=== PATIENT | female | born 1955 | race Caucasian/White ===

== ENCOUNTER 2016-07-21 17:51 | Emergency (ER) | payer OTHER ==
[~2016-07-21] VITALS: Ht 162.6 cm; Wt 130.4 kg
[~2016-07-21 17:51] MED LIST: ALBU2.5V4 IH; BACL10TA PO; BECL8.7A5 INH; CITA20TA11 PO; DABI150C PO; Diltiazem Hcl PO; HYDR-4003 PO; IBUP400T22 PO; IPRA4AER IH; LISI2.5T PO; METF500T4 PO; ONDA8TAB10 PO; SIMV40TA5 PO; TRAM50TA2 PO
[2016-07-21 18:23] VITALS: BP 135/79; RESP 15; O2SAT 96
--- NOTE | 2016-07-21 20:00 | ED.REPORT ---
HPI-General Illness Date of Service Jul 21, 2016 ED Provider: Vega Tipton MD Nursing Notes Stated Complaint: THROAT PAIN, TROUBLE BREATHING Chief Complaint: ENT & Mouth Nursing Notes Reviewed: Yes Allergies: Coded Allergies: No Known Allergies (Verified , 05/28/16) Scheduled ([Diltiazem Hcl]) 120 MG CAP.ER.24H 120 MG PO DAILY Baclofen (Baclofen) 10 Mg Tablet 10 MG PO TID Citalopram (Citalopram) 20 Mg Tablet 20 MG PO HS Dabigatran Etexilate Mesylate (Pradaxa) 150 Mg Capsule 150 MG PO BID Lisinopril (Lisinopril) 2.5 Mg Tablet 2.5 MG PO DAILY Metformin (Metformin) 500 Mg Tablet 500 MG PO HS Ondansetron ODT (Ondansetron ODT) 8 Mg Tab.rapdis 8 MG PO QID Simvastatin (Simvastatin) 40 Mg Tablet 40 MG PO HS Scheduled PRN Albuterol Neb Soln (Albuterol Neb Soln) 2.5 Mg/3 Ml Vial.neb 2.5 MG IH Q4 PRN PRN For Shortness of Breath Albuterol/Ipratropium (Combivent Respimat Inhal [place]) 120 Spr/4 Gm Inhaler 1 PUFF IH QID PRN PRN For Shortness of Breath Beclomethasone Dipropionate (Qvar) 8.7 Gm Aer.w.adap 2 PUFF INH BID PRN PRN For Shortness of Breath Hydrocodone-Acetaminophen 5-325 mg (Hydrocodone-Acetaminophen 5-325 mg) 1 Each Tablet 1 EACH PO TID PRN PRN For Pain Hydrocodone-Acetaminophen 5-325 mg (Hydrocodone-Acetaminophen 5-325 mg) 1 Each Tablet 1 TABLET PO Q4H PRN PRN For Pain Ibuprofen (Ibuprofen) 400 Mg Tablet 400 MG PO QID PRN PRN For Pain Tramadol (Tramadol) 50 Mg Tablet 100 MG PO Q6H PRN PRN For Pain General Time Seen by MD: 19:36 Chief Complaint Other Hx Obtained From: Patient Arrived By: Walk-in Sudden in Onset?: Yes Onset Occurred: Just prior to arrival Symptom Duration: Since onset Severity: Current: Mild Pertinent Negative: Pt denies other symptoms Recent Healthcare: No recent doctor visit, No recent hospitalization Similar Sx Previous: No Past Medical History Patient History: FH: stomach ulcer FATHER FHx: lung cancer FATHER Past Medical History Notes: PCP: Dr. Black MEDS: metformin metoprolol citalopram simvastin lisinopril Past Medical History History of Afib and SVT Morbid obesity on 2L home O2 at night Diabetes mellitus type II COPD Hyperlipidemia Hypertension Reports: COPD, Diabetes mellitus, Hyperlipidemia, Hypertension Past Surgical History back Reports: Hysterectomy Smoking History Current Every Day Smoker, Light Tobacco Smoker Social History Long-time smoker. Alcohol Use: Denies alcohol use Drug Use: Denies drug use Other Social History: Frequent ED visitor Ambulatory Status Independent Review of Systems Full Review of Systems Constitutional: Denies: Chills, Fever Neurologic: Denies: Headache Complete sys rev & neg: except as marked. Physical Exam Vital Signs Vital Signs Date Time Temp Pulse Resp B/P Pulse Ox O2 Delivery O2 Flow Rate FiO2 07/21/16 18:23 36.7 86 15 135/79 96 Room Air Initial VS: Reviewed General/Constitutional: Well-developed, Well-nourished Re-Eval/Medical Decision Counseled Regarding: Diagnosis, Lab results, Need for follow-up Discharge & Departure Discharge Condition All VS Reviewed: Yes Condition: Stable Referrals: Marly Black MD (PCP) Scribe Attestation Portions of this note were transcribed by Mahad Lutz. I, Dr. Tipton personally performed the history, physical exam and medical decision-making; I reviewed and confirmed the accuracy of the information in the transcribed note. Signed by Asya Barry, 07/21/2016 at 23:00. Vega Tipton MD Jul 21, 2016 20:00 MAHAD LUTZ Jul 21, 2016 20:01
--- NOTE | 2016-07-21 20:04 | ED.REPORT ---
HPI-General Illness Date of Service Jul 21, 2016 ED Provider: Dr. Florencio Samaniego D.O. A 61 year old female with a medical history including diabetes, COPD, hypertension, hyperlipidemia, SVT, and atrial fibrillation presents to the ED with a dry throat onset two weeks ago. In the morning she is unable to breathe through her mouth until after a productive coughing fit. However, the patient denies throat pain. The patient's metformin dosage was increased by her PCP just before onset. She has consumed plenty of liquids with no relief. Nursing Notes Stated Complaint: THROAT PAIN, TROUBLE BREATHING Chief Complaint: ENT & Mouth Nursing Notes Reviewed: Yes Allergies: Coded Allergies: No Known Allergies (Verified , 05/28/16) Scheduled ([Diltiazem Hcl]) 120 MG CAP.ER.24H 120 MG PO DAILY Baclofen (Baclofen) 10 Mg Tablet 10 MG PO TID Citalopram (Citalopram) 20 Mg Tablet 20 MG PO HS Dabigatran Etexilate Mesylate (Pradaxa) 150 Mg Capsule 150 MG PO BID Lisinopril (Lisinopril) 2.5 Mg Tablet 2.5 MG PO DAILY Metformin (Metformin) 500 Mg Tablet 500 MG PO HS Ondansetron ODT (Ondansetron ODT) 8 Mg Tab.rapdis 8 MG PO QID Simvastatin (Simvastatin) 40 Mg Tablet 40 MG PO HS Scheduled PRN Albuterol Neb Soln (Albuterol Neb Soln) 2.5 Mg/3 Ml Vial.neb 2.5 MG IH Q4 PRN PRN For Shortness of Breath Albuterol/Ipratropium (Combivent Respimat Inhal [place]) 120 Spr/4 Gm Inhaler 1 PUFF IH QID PRN PRN For Shortness of Breath Beclomethasone Dipropionate (Qvar) 8.7 Gm Aer.w.adap 2 PUFF INH BID PRN PRN For Shortness of Breath Hydrocodone-Acetaminophen 5-325 mg (Hydrocodone-Acetaminophen 5-325 mg) 1 Each Tablet 1 EACH PO TID PRN PRN For Pain Hydrocodone-Acetaminophen 5-325 mg (Hydrocodone-Acetaminophen 5-325 mg) 1 Each Tablet 1 TABLET PO Q4H PRN PRN For Pain Ibuprofen (Ibuprofen) 400 Mg Tablet 400 MG PO QID PRN PRN For Pain Tramadol (Tramadol) 50 Mg Tablet 100 MG PO Q6H PRN PRN For Pain General Time Seen by MD: 20:04 Chief Complaint Other (Dry Throat) Hx Obtained From: Patient Arrived By: Walk-in Sudden in Onset?: Yes Onset Occurred: More than a week ago... (2 weeks) Symptom Duration: Since onset Severity: Current: No pain currently Severity: Maximum: No pain Associated with: Reports: Cough, Denies: Fever Pertinent Negative: Relieved by nothing Context Related History: Reports COPD, Reports Diabetes mellitus Recent Healthcare: Recent doctor visit Past Medical History Patient History: FH: stomach ulcer FATHER FHx: lung cancer FATHER Past Medical History Notes: PCP: Dr. Black MEDS: metformin metoprolol citalopram simvastin lisinopril Past Medical History History of Afib and SVT Morbid obesity on 2L home O2 at night Diabetes mellitus type II COPD Hyperlipidemia Hypertension Pneumonia Sepsis Reports: COPD, Diabetes mellitus, Hyperlipidemia, Hypertension Past Surgical History Back Reports: Hysterectomy Smoking History Current Every Day Smoker, Light Tobacco Smoker Social History Long-time smoker. Alcohol Use: Denies alcohol use Drug Use: Denies drug use Other Social History: Frequent ED visitor Ambulatory Status Independent Review of Systems + dry throat, productive cough Full Review of Systems Constitutional: Denies: Fever Ears / Nose / Throat: Denies: Tongue pain Respiratory: Denies: Shortness of breath GI: Denies: Vomiting Complete sys rev & neg: except as marked. Physical Exam Vital Signs Vital Signs Date Time Temp Pulse Resp B/P Pulse Ox O2 Delivery O2 Flow Rate FiO2 07/21/16 18:23 36.7 86 15 135/79 96 Room Air Initial VS: Reviewed Head / Eyes: Atraumatic, Normocephalic Neck: Supple, Full range of motion Respiratory: Breath sounds normal, Clear to auscultation, No respiratory distress Cardiovascular: Regular rate & rhythm, Heart sounds normal Skin: Warm, Dry, No cyanosis Neurologic: Alert, Oriented, Nonfocal Psychiatric: Mood/affect normal, Behavior normal, Normal thought content General/Constitutional: Awake, Alert, No acute distress ENT: Airway patent, Mucous membranes moist Pharynx / Tonsils / Uvula: Positive: Pharyngeal erythema Interpretation & Diagnostics Lab Results Interpretation Result Diagram: 07/21/16202907/21/16 2030 Test 07/21/16 20:30 White Blood Count 12.2th/mm3 (3.8-10.1) Red Blood Count 5.03mil/mm3 (3.90-5.20) Hemoglobin 15.2g/dL (12.0-15.6) Hematocrit 48.4% (35.0-46.0) Mean Corpuscular Volume 96.2fL (81-100) Mean Corpuscular Hemoglobin 30.2pg (27.0-35.0) Mean Corpuscular Hemoglobin Concent 31.4% (32.0-37.0) Red Cell Distribution Width 15.3% (12.3-15.4) Platelet Count 267bil/L (150-400) Neutrophils (%) (Auto) 68.8% (40-74) Lymphocytes (%) (Auto) 22.6% (14-46) Monocytes (%) (Auto) 6.9% (4-12) Eosinophils (%) (Auto) 1.3% (0-5) Basophils (%) (Auto) 0.2% (0-3) Sodium Level 135mEq/L (134-144) Potassium Level 4.2mEq/L (3.5-5.2) Chloride Level 95mEq/L (97-108) Carbon Dioxide Level 26mmol/L (18-29) Blood Urea Nitrogen 7mg/dL (8-27) Creatinine 0.42mg/dL (0.57-1.00) Estimat Glomerular Filtration Rate 220mL/min (>59) Glucose Level 139mg/dL (60-99) Calcium Level 9.0mg/dL (8.5-10.1) Total Bilirubin 0.5mg/dL (0.0-1.2) Aspartate Amino Transf (AST/SGOT) 22U/L (0-50) Alanine Aminotransferase (ALT/SGPT) 23U/L (0-32) Alkaline Phosphatase 100U/L (25-165) Troponin T < 0.010ug/L (0.0-0.011) Total Protein 7.5g/dL (6.4-8.4) Albumin 3.4g/dL (3.4-5.0) Hold Herrera Top Tube Received (Received) Pulse Oximetry Interpretation Pulse Oximetry: Pulse Ox normal ECG Interpretation Time: 21:17 Interpreted by: ED physician Normal ECG Interpretation: Normal sinus rhythm (with frequent PVCs. She certainly does not appear to be in atrial fibrillation right now. No signs of ischemia.) X-Ray Chest Interpretation Chest Xray Interpretation: IMPRESSION: No acute cardiopulmonary findings. Dictated by: Lola Wang M.D. on 07/21/2016 at 20:45 View: AP & lat Interpretation / Wet Read by: Interpret - Radiologist X-Ray Interpretation Xray Interpretation: IMPRESSION: No unexpected radiopaque foreign bodies to explain patient's symptoms. No prevertebral soft tissue swelling. Dictated by: Lola Wang M.D. on 07/21/2016 at 20:44 Study Performed: 2 Views X-Ray Ordered: Neck (Soft Tissue) Interpretation / Wet Read by: Interpret - Radiologist Re-Eval/Medical Decision Med Decision/Clinical Course I am not exactly sure why her throat and upper chest is burning. Perhaps a viral syndrome. Perhaps it strep. Pericarditis could also cause this. She seems to be low risk for acute coronary syndrome but something certainly is going on. I will check EKG labs and x-rays. Care endorsed to Dr. Wood at the close of my shift. He will follow-up the labs x-rays and make final disposition. Source of Hx: Old records Time of Eval: 20:38 Patient Status: Condition improved Re-Evaluation/Progress Note: Discussed with patient plan for transfer of care to Dr. Wood. Discharge & Departure Shift Change Sign-Out Patient Care Transferred: Yes (Dr. Wood) Discussed Complaint(s): Yes Laboratory Evaluation: Ordered, not yet done Imaging Studies: Imaging discussed Response to Therapy: Improved Primary Impression: Pharyngitis Pharyngitis/tonsillitis etiology: unspecified etiology Qualified Code: J02.9 - Acute pharyngitis, unspecified Discharge Condition All VS Reviewed: Yes Condition: Stable Referrals: Marly Black MD (PCP) Care Transferred to: Dr. Wood Care Transferred at: 21:00 Asya Attestation Portions of this note were transcribed by Theresa Paul. I, Dr. Samaniego, personally performed the history, physical exam, and medical decision-making; I reviewed and confirmed the accuracy of the information in the transcribed note. Signed by: Asya Zavala, 07/21/2016, 21:00 copies to: Marly Black MD, Todd P DO Jul 21, 2016 20:04 THERESA PAUL Jul 21, 2016 20:40
--- NOTE | 2016-07-21 20:47 | DRSVH ---
PROCEDURE: X-RAY NECK SOFT TISSUE ([id number]) INDICATIONS: sore throat TECHNIQUE: 2 views of the neck were acquired. COMPARISON: None. FINDINGS: Airway: The airway appears patent. Soft tissues: Prevertebral soft tissues are normal in thickness. The epiglottis and aryepiglottic f olds appear normal. No soft tissue gas. Bones: No suspicious bony lesions. Visualized cervical spine is normally aligned. IMPRESSION: No unexpected radiopaque foreign bodies to explain patient's symptoms. No prevertebral so ft tissue swelling. Dictated by: Lola Wang M.D. on 07/21/2016 at 20:44 Approved by: Lola Wang M.D. on 07/21/2016 at 20:45
--- NOTE | 2016-07-21 20:48 | DRSVH ---
PROCEDURE: X-RAY CHEST, TWO VIEWS ([id number]) INDICATIONS: dyspnea TECHNIQUE: 2 views of the chest were acquired. COMPARISON: [facility], , CHEST 2 VIEW, 11/23/2014, 11:17. FINDINGS: Surgical changes and devices: None. Lungs and pleura: No pleural effusions or pneumothorax. Lungs are clear. Mediastinum: Mediastinal contours are normal. Heart size is normal. Bones and chest wall: No suspicious bony abnormalities. Soft tissues appear unremarkable. IMPRESSION: No acute cardiopulmonary findings. Dictated by: Lola Wang M.D. on 07/21/2016 at 20:45 Approved by: Lola Wang M.D. on 07/21/2016 at 20:46
[2016-07-21 20:49] LABS: BASOPHILS % (AUTO) 0.2 % (0-3); EOSINOPHILS % (AUTO) 1.3 % (0-5); MONOCYTES % (AUTO) 6.9 % (4-12); Mean Corpuscular Hemoglobin 30.2 pg (27.0-35.0); Mean Corpuscular Volume 96.2 fL (81-100); NEUTROPHILS % (AUTO) 68.8 % (40-74); Platelet Count 267 bil/L (150-400)
[2016-07-21 21:12] LABS: TROPONIN T < 0.010 ug/L (0.0-0.011)
[2016-07-21 21:21] VITALS: BP 132/67; PULSE 89; RESP 18; O2SAT 97
[2016-07-21] MEDS ORDERED: Famotidine Inj 20 MG in IV Premix 1 EACH IV ONE (21:30)
[2016-07-21] MEDS ORDERED: FAMO20T PO (21:34)
== END 2016-07-21 21:50 | disposition home or self-care (01) ==
LOC: SED 17:51
DX: J02.9 Acute pharyngitis, unspecified (principal); K21.0 Gastro-esophageal reflux disease with esophagitis; E66.01 Morbid (severe) obesity due to excess calories; J44.9 Chronic obstructive pulmonary disease, unspecified; E11.9 Type 2 diabetes mellitus without complications; E78.5 Hyperlipidemia, unspecified; I10 Essential (primary) hypertension; I48.91 Unspecified atrial fibrillation; I47.1 Supraventricular tachycardia; F17.200 Nicotine dependence, unspecified, uncomplicated; Z68.42 Body mass index [BMI] 45.0-49.9, adult; Z99.81 Dependence on supplemental oxygen; Z79.84 Long term (current) use of oral hypoglycemic drugs

== ENCOUNTER 2016-08-03 18:59 | Emergency (ER) | payer OTHER ==
[~2016-08-03] VITALS: Ht 162.6 cm; Wt 130.4 kg
[~2016-08-03 18:59] MED LIST changes: +FAMO20T PO
[2016-08-03 19:48] VITALS: BP 125/77; PULSE 86; RESP 20; O2SAT 88
[2016-08-03 20:32] LABS: BASOPHILS % (AUTO) 0.4 % (0-3); EOSINOPHILS % (AUTO) 1.2 % (0-5); MONOCYTES % (AUTO) 8.4 % (4-12); Mean Corpuscular Volume 97.3 fL (81-100); NEUTROPHILS % (AUTO) 65.5 % (40-74); Platelet Count 271 bil/L (150-400)
[2016-08-03 21:03] LABS: Magnesium 1.6 mg/dL (1.6-2.6)
[2016-08-03 21:50] LABS: APPEARANCE,URINE HAZY (CLEAR,HAZY); COLOR,URINE YELLOW (YELLOW); OCCULT BLOOD,URINE NEGATIVE (NEGATIVE); UROBILINOGEN,URINE NORMAL (NORMAL)
[2016-08-03 23:20] VITALS: BP 143/79; PULSE 83; RESP 23; O2SAT 93
--- NOTE | 2016-08-03 23:22 | ED.REPORT ---
HPI-Abd Pain F 40 and Over Date of Service Aug 03, 2016 ED Provider: Julio Mcmillan MD Patient is an obese 61 year old female with a history of COPD on 2L home O2 at night, diabetes mellitus, hypertension, and recurrent narrow complex SVT who presents to the ED complaining of right sided flank pain that began several days ago. Patient states that the pain radiates to her abdomen. The patient believes that her symptoms today are due to a kidney stone. The patient also reports having a cough, which has been ongoing for several weeks. She was seen in the ED several weeks ago for this complaint and was diagnosed with a viral URI. She states that her cough has not improved since that time and that she has also been experiencing a sore throat. Patient states that she often has a lot of phlegm in her throat and that it takes a lot of effort to clear her throat. She denies shortness of breath or chest pain. She uses an albuterol inhaler at home but she has not used her inhaler today. Patient denies a fever. Nursing Notes Stated Complaint: POSS KIDNEY STONE Chief Complaint: Female Abdominal Pain Nursing Notes Reviewed: Yes Allergies: Coded Allergies: No Known Allergies (Verified , 08/03/16) Scheduled ([Diltiazem Hcl]) 120 MG CAP.ER.24H 120 MG PO DAILY Baclofen (Baclofen) 10 Mg Tablet 10 MG PO TID Citalopram (Citalopram) 20 Mg Tablet 20 MG PO HS Dabigatran Etexilate Mesylate (Pradaxa) 150 Mg Capsule 150 MG PO BID Famotidine (Pepcid) 20 Mg Tablet 20 MG PO BID Lisinopril (Lisinopril) 2.5 Mg Tablet 2.5 MG PO DAILY Metformin (Metformin) 500 Mg Tablet 500 MG PO HS Ondansetron ODT (Ondansetron ODT) 8 Mg Tab.rapdis 8 MG PO QID Simvastatin (Simvastatin) 40 Mg Tablet 40 MG PO HS Scheduled PRN Albuterol Neb Soln (Albuterol Neb Soln) 2.5 Mg/3 Ml Vial.neb 2.5 MG IH Q4 PRN PRN For Shortness of Breath Albuterol/Ipratropium (Combivent Respimat Inhal [place]) 120 Spr/4 Gm Inhaler 1 PUFF IH QID PRN PRN For Shortness of Breath Beclomethasone Dipropionate (Qvar) 8.7 Gm Aer.w.adap 2 PUFF INH BID PRN PRN For Shortness of Breath Hydrocodone-Acetaminophen 5-325 mg (Hydrocodone-Acetaminophen 5-325 mg) 1 Each Tablet 1 EACH PO TID PRN PRN For Pain Hydrocodone-Acetaminophen 5-325 mg (Hydrocodone-Acetaminophen 5-325 mg) 1 Each Tablet 1 TABLET PO Q4H PRN PRN For Pain Ibuprofen (Ibuprofen) 400 Mg Tablet 400 MG PO QID PRN PRN For Pain Tramadol (Tramadol) 50 Mg Tablet 100 MG PO Q6H PRN PRN For Pain General Time Seen by MD: 23:20 Chief Complaint Flank pain right Hx Obtained From: Patient Arrived By: Walk-in Sudden in Onset?: No Onset Occurred: 3 days ago Symptom Duration: Since onset Progression since Onset: Gradually worsening Location: : Flank right Quality: Painful Radiation: : Abdomen lower Severity: Current: Moderate Severity: Maximum: Severe Recent Healthcare: No recent doctor visit, No recent hospitalization Similar Sx Previous: Yes Past Medical History Patient History: FH: stomach ulcer FATHER FHx: lung cancer FATHER Past Medical History Notes: PCP: Dr. Black Past Medical History History of Afib, atrial flutter, and SVT Morbid obesity COPD on 2L home O2 at night Diabetes mellitus type II Hyperlipidemia Hypertension Pneumonia Sepsis Past Surgical History Reports: Hysterectomy Reports: Back/neck surgery Smoking History Current Every Day Smoker, Light Tobacco Smoker Social History Long-time smoker. Alcohol Use: Denies alcohol use Drug Use: Denies drug use Other Social History: Frequent ED visitor, Local resident Ambulatory Status Independent Review of Systems Constitutional: Denies: Chills, Fever Respiratory: Reports: Non-productive cough, Denies: Shortness of breath Cardiovascular: Denies: Chest pain GI: Reports: Abdominal pain Female: Reports: Flank pain Musculoskeletal: Reports: Back pain, Extremity pain, Denies: Extremity swelling Complete sys rev & neg: except as marked. Ears / Nose / Throat: Reports: Sore throat Physical Exam Vital Signs Vital Signs (First) Date Time Temp Pulse Resp B/P Pulse Ox O2 Delivery O2 Flow Rate FiO2 08/03/16 19:48 36.2 86 20 125/77 88 Room Air 08/03/16 23:20 4 Initial VS: Reviewed, Vital signs normal Head / Eyes: Atraumatic, Normocephalic, PERRL ENT: Conjunctiva normal, No scleral icterus Neck: Supple, Full range of motion Extremities: Vascular intact, Neuro intact Neurologic: Alert, Oriented, Nonfocal Psychiatric: Mood/affect normal, Behavior normal, Normal thought content General/Constitutional: Awake, Alert Appearance / Presentation: Positive: Obese, morbidly exam is limited by body habitus Respiratory / Chest: Breath sounds NL, Breath sounds = bilat, No respiratory distress, No rales, No rhonchi, No wheezing Cardiovascular: Heart rate NL, Regular rhythm, Heart sounds NL, No murmurs Abdomen: Soft, No guarding, No rebound Tenderness/Guarding/Rebound: Positive: Tender diffuse (right side) Back: exam is limited by body habitus Interpretation & Diagnostics Lab Results Interpretation Result Diagram: 08/03/16201908/03/162019 Test 08/03/16 20:20 08/03/16 21:06 White Blood Count 12.1th/mm3 (3.8-10.1) Red Blood Count 4.86mil/mm3 (3.90-5.20) Hemoglobin 14.6g/dL (12.0-15.6) Hematocrit 47.3% (35.0-46.0) Mean Corpuscular Volume 97.3fL (81-100) Mean Corpuscular Hemoglobin 30.0pg (27.0-35.0) Mean Corpuscular Hemoglobin Concent 30.9% (32.0-37.0) Red Cell Distribution Width 14.9% (12.3-15.4) Platelet Count 271bil/L (150-400) Neutrophils (%) (Auto) 65.5% (40-74) Lymphocytes (%) (Auto) 24.2% (14-46) Monocytes (%) (Auto) 8.4% (4-12) Eosinophils (%) (Auto) 1.2% (0-5) Basophils (%) (Auto) 0.4% (0-3) D-Dimer 0.6mg/L (<0.50) Sodium Level 141mEq/L (134-144) Potassium Level 4.4mEq/L (3.5-5.2) Chloride Level 98mEq/L (97-108) Carbon Dioxide Level 28mmol/L (18-29) Blood Urea Nitrogen 8mg/dL (8-27) Creatinine 0.43mg/dL (0.57-1.00) Estimat Glomerular Filtration Rate 214mL/min (>59) Glucose Level 113mg/dL (60-99) Calcium Level 9.3mg/dL (8.5-10.1) Magnesium Level 1.6mg/dL (1.6-2.6) Total Bilirubin 0.3mg/dL (0.0-1.2) Aspartate Amino Transf (AST/SGOT) 22U/L (0-50) Alanine Aminotransferase (ALT/SGPT) 22U/L (0-32) Alkaline Phosphatase 93U/L (25-165) Total Protein 7.5g/dL (6.4-8.4) Albumin 3.4g/dL (3.4-5.0) Lipase 18U/L (13-60) Hold Herrera Top Tube Received (Received) Urine Color Yellow (YELLOW) Urine Appearance Hazy (CLEAR,HAZY) Urine pH 6.0 (5.0-8.0) Urine Specific [place] 1.030 (1.003-1.035) Urine Protein Negativemg/dL (NEG,TRACE) Urine Glucose (UA) 250mg/dL (NEGATIVE) Urine Ketones Tracemg/dL (NEGATIVE) Urine Occult Blood Negative (NEGATIVE) Urine Nitrite Negative (NEGATIVE) Urine Bilirubin Negative (NEGATIVE) Urine Urobilinogen Normalmg/dL (NORMAL) Urine Leukocyte Esterase Negative (NEGATIVE) Urine RBC 0-2/hpf (0-2) Urine WBC 0-5/hpf (0-5) Urine Epithelial Cells None/hpf (NONE-MOD) Urine Crystals None seen (NONE SEEN) Urine Bacteria None/hpf (NONE-FEW) Urine Hyaline Casts None/lpf (NONE) Urine Granular Casts None seen (NONE SEEN) Urine Waxy Casts None seen (NONE SEEN) Urine Red Blood Cell Casts None seen (NONE SEEN) Urine White Blood Cell Casts None seen (NONE SEEN) Urine Mucus None seen (None Seen) Urine Trichomonas None seen (NONE SEEN) Urine Yeast None (NONE SEEN) Urinalysis Comment None Urine Culture Reflexed Not indicated Lab Results Interpretation: Elevated white blood count, elevated d-dimer X-Ray Chest Interpretation Chest Xray Interpretation: Impression: No acute cardiopulmonary process. View: AP & lat Interpretation / Wet Read by: Wet read ED physician CT Chest Interpretation CONCLUSION: No evidence of pulmonary embolism or dissection. Radiologist: Wei Torres MD 08/04/2016 - 3:30:05 AM [facility] Study type: CT pulm angiogram Interpretation / Wet Read by: Interpret - Radiologist CT Abd / Pelvis Interpretation CONCLUSION: No specific acute or active process. Underlying atherosclerotic vascular disease. There is probably a stent in the right common iliac artery. Nonobstructing intrarenal calcifications in the lower pole of the left kidney. Radiologist: Wei Torres MD 08/04/2016 - 12:40:37 AM [facility] Study type: Abdominal CT IV contrast Interpretation / Wet Read by: Interpret - Radiologist Re-Eval/Medical Decision Med Decision/Clinical Course 61-year-old female with nonspecific complaints of right flank pain. She was concerned about a kidney stone as a cause of her pain. She had no red cells or white cells in her urine. CT KUB was negative. She was short of breath and hypoxic so a d-dimer was done which was elevated. She has a history of COPD but there seems to be in an acute exacerbation. A CT scan of her chest was performed which was negative for DVT. She is on home O2 because of baseline hypoxia. On 2-3 L here her O2 saturations were in the 93-96 range. She will be discharged home to follow-up with her primary doctor for persistent symptoms. Source of Hx: Old records Re-Evaluation/Progress #1: Time of Eval: 01:23 Re-Evaluation/Progress Note: Rechecked the patient. She was informed that no acute process was seen on the CT scan. Discussed the results of her labs and chest x-ray. Patient is found to be at 84-85% on oxygen. The patient states that she her O2 sat is usually low, but moreso in the low 90s. Patient denies having swelling in her legs, but states that she does often experience muscle cramps. A d-dimer will be ordered. Re-Evaluation/Progress #2: Time of Eval: 04:05 Patient Status: Condition improved Re-Evaluation/Progress Note: Rechecked the patient to discuss the results of her CT scan. No acute problem identified. Patient continues to be hypoxic but she has home O2 that she can use. She feels comfortable going home. Discharge instructions and follow-up discussed. All questions were addressed. Return to the ED warnings given. Counseled Regarding: Diagnosis, Lab results, Need for follow-up, When/why to return to ED Discharge & Departure Primary Impression: Flank pain Additional Impressions: Hypoxia COPD (chronic obstructive pulmonary disease) COPD type: COPD with acute exacerbation Qualified Code: J44.1 - Chronic obstructive pulmonary disease with (acute) exacerbation Disposition: Home Discharge Condition All VS Reviewed: Yes Condition: Stable Patient Instructions: Acute Low Back Pain (ED) Additional Instructions: CT scan of the abdomen shows no evidence of a painful process. You do have kidney stones but none of these is mobile or causing blockage, so they should not be painful. There is no evidence of blood clot or pneumonia or collapsed lung. Continue present pain medicines and home oxygen. Follow-up with your regular doctor as needed for persistent symptoms or return to the emergency room get significantly worse. Referrals: Marly Black MD (PCP) [place] Attestation Portions of this note were transcribed by Chey Guevara. I, Dr. Mcmillan personally performed the history, physical exam and medical decision-making; I reviewed and confirmed the accuracy of the information in the transcribed note. Signed by: Asya Corbin, 08/04/2016 0429 copies to: Marly Black MD, Howard L MD Aug 03, 2016 23:21 Chey Guevara Aug 03, 2016 23:34
[2016-08-03] MEDS ORDERED: oxyCODONE-Acetamin 5-325 mg Tablet PO ONE (23:50)
[2016-08-04 02:05] VITALS: BP 138/72; PULSE 82; RESP 20; O2SAT 98
[2016-08-04 04:37] VITALS: BP 130/70; PULSE 84; RESP 16; O2SAT 92
--- NOTE | 2016-08-04 08:39 | DRSVH ---
PROCEDURE: CT ANGIO CHEST PULMONARY EMBOLISM ([id number]) INDICATIONS: desat, back pain, elev dimer TECHNIQUE: After the administration of intravenous contrast, 2 mm thick sections acquired from the pulmonary api armando to the posterior costophrenic angles. 3-dimensional maximum intensity projection (MIP) coronal a nd sagittal reformats were then acquired through the thorax. For radiation dose reduction, the follo wing was used: automated exposure control, adjustment of mA and/or kV according to patient size. COMPARISON: [facility], CT, CHEST ANGIO-PE, 09/17/2014, 1:56. FINDINGS: Image quality: Excellent. Pulmonary arteries: Pulmonary arteries are normal in size, and demonstrate no intraluminal filling d efects to suggest central pulmonary embolism. Lungs and pleura: A granuloma is present within the left upper lobe. Trace scar is present at the an terior right middle lobe. Lungs are otherwise clear. No pleural effusions or pneumothorax. Central and peripheral airways are patent. Mediastinum: Heart size is normal, without pericardial effusion. No mediastinal or hilar adenopathy . Thoracic aorta is normal in caliber and enhancement. Scattered atheromatous calcifications are pre sent within the aortic arch. Esophagus is normal in caliber, without hiatal hernia. Bones and chest wall: No suspicious bony lesions. Ribs and thoracic spine appear intact throughout. Thyroid gland is unremarkable. No axillary or supraclavicular adenopathy. Abdomen: There is a partially visualized duodenal diverticulum filled with gas and food debris. Visu alized upper abdominal solid organs appear normal in the early arterial phase of enhancement. IMPRESSION: 1. No acute pulmonary embolus. Note: The preliminary [facility] interpretation and the final report are concordant. Dictated by: Lola Wang M.D. on 08/04/2016 at 8:21 Approved by: Lola Wang M.D. on 08/04/2016 at 8:37
--- NOTE | 2016-08-04 09:00 | DRSVH ---
PROCEDURE: CT KUB ([id number]) INDICATIONS: right flank pain TECHNIQUE: Noncontrast 5 mm thick sections acquired from the diaphragms to the symphysis. 5 mm thick coronal an d sagittal reformats were then performed. For radiation dose reduction, the following was used: aut omated exposure control, adjustment of mA and/or kV according to patient size. COMPARISON: [facility], CT, CT KUB, 03/26/2015, 10:18. FINDINGS: Image quality: Excellent. Lung bases: Lung bases are clear. Heart size is normal. Urinary system: Left renal cortical scarring/atrophy. Left renal calcifications measuring up to 6 mm, for example image 46 series 2. No other urolithiasis.. No hydronephrosis or perinephric fat strandi ng. Both ureters appear non-dilated throughout their expected courses. Bladder wall thickness is no rmal; no calcified bladder stones. Other solid organs: Liver and spleen are normal in size. Gallbladder surgically absent. Pancreas i s normal in contours. No adrenal nodules. Peritoneum and bowel: There is a duodenal diverticulum with gas and debris seen on image 36 series 2. The appendix and rectum are unremarkable. A few scattered colonic diverticula incidentally noted. No free fluid or free air. No abscess. Nodes and vessels: No retroperitoneal or mesenteric adenopathy by size criteria. Aorta and inferior vena cava are normal in caliber. Abdominal wall: Tiny fat-containing umbilical hernia Pelvis: No free pelvic fluid. No inguinal hernias or adenopathy. Bones: No suspicious bony lesions. No vertebral body compression fractures. Diffuse degenerative di sc disease IMPRESSION: No right-sided urolithiasis. Nonobstructive left renal calculi (versus dystrophic calcifications). Left renal cortical atrophy/sca rring. Incidentally noted duodenal diverticulum. Incidental colonic diverticula. Normal appendix. Elsewhere, no acute abnormality. Dictated by: Houston Julio M.D. on 08/04/2016 at 8:49 Approved by: Houston Julio M.D. on 08/04/2016 at 8:58
--- NOTE | 2016-08-04 09:35 | DRSVH ---
PROCEDURE: X-RAY CHEST, TWO VIEWS ([id number]) INDICATIONS: hypoxia TECHNIQUE: 2 views of the chest were acquired. COMPARISON: [facility], CT, CT ANGIO CHEST PE, 08/04/2016, 3:10. [facility], CR, XR CHEST 2VW, 07/21/2016, 20:16. FINDINGS: Surgical changes and devices: None. Lungs and pleura: No pleural effusions or pneumothorax. Lungs are clear, aside from small left uppe r lobe calcified granuloma. Mediastinum: Mediastinal contours are normal. Heart size is normal. Bones and chest wall: No suspicious bony abnormalities. Soft tissues appear unremarkable. IMPRESSION: No acute cardiopulmonary disease. Dictated by: Levi Ceballos RRA Interpreted: Beti Chapa MD on 08/04/2016 at 9:33 Transcribed by: ELVIA on 08/04/2016 at 9:34 Approved by: Beti Chapa M.D. on 08/04/2016 at 17:21
== END 2016-08-04 04:39 | disposition home or self-care (01) ==
LOC: SED 18:59
DX: R10.9 Unspecified abdominal pain (principal); J44.1 Chronic obstructive pulmonary disease with (acute) exacerbation; R09.02 Hypoxemia; E11.9 Type 2 diabetes mellitus without complications; I10 Essential (primary) hypertension; I47.1 Supraventricular tachycardia; E78.5 Hyperlipidemia, unspecified; E66.01 Morbid (severe) obesity due to excess calories; F17.210 Nicotine dependence, cigarettes, uncomplicated; Z68.42 Body mass index [BMI] 45.0-49.9, adult; Z79.52 Long term (current) use of systemic steroids; Z79.84 Long term (current) use of oral hypoglycemic drugs
CPT/HCPCS: 36415; 71020; 71275; 74176; 80053; 81000; 83690; 83735; 85025; 85379; 99285; Q9967

== ENCOUNTER 2016-10-23 19:13 | Emergency (ER) | payer OTHER ==
[~2016-10-23] VITALS: Ht 162.6 cm; Wt 126.3 kg
[2016-10-23 19:42] VITALS: BP 148/69; PULSE 98; RESP 16
[2016-10-23 21:32] LABS: BASOPHILS % (AUTO) 0.5 % (0-3); EOSINOPHILS % (AUTO) 1.4 % (0-5); MONOCYTES % (AUTO) 6.6 % (4-12); Mean Corpuscular Hemoglobin 30.2 pg (27.0-35.0); Mean Corpuscular Volume 93.9 fL (81-100); NEUTROPHILS % (AUTO) 73.1 % (40-74); Platelet Count 254 bil/L (150-400)
[2016-10-23 22:00] LABS: Magnesium 1.7 mg/dL (1.6-2.6)
--- NOTE | 2016-10-23 22:45 | ED.REPORT ---
HPI-Abd Pain F 40 and Over Date of Service October 23, 2016 ED Provider: Óscar Perez MD The pt is a 61 y/o female w/ a hx of a cholecystectomy, hysterectomy, and 2 C- sections presenting to the ED complaining of abdominal pain onset ten days ago. She describes the pain as aching, w/ occasional stabbing sensations, as feeling "hot inside". The pt is also experiencing vomiting, nausea, and diarrhea which she describes as yellow and "filmy". She is only able to eat a couple of bites of food, which has caused her to lose ten pounds in the last ten days. She has not taken any antibiotics recently, or been near anyone experiencing these symptoms. Nursing Notes Stated Complaint: STOMACH PAIN Chief Complaint: Female Abdominal Pain Nursing Notes Reviewed: Yes (Verical not reconciled) Allergies: Coded Allergies: No Known Allergies (Verified , 08/03/16) Scheduled ([Diltiazem Hcl]) 120 MG CAP.ER.24H 120 MG PO DAILY Baclofen (Baclofen) 10 Mg Tablet 10 MG PO TID Citalopram (Citalopram) 20 Mg Tablet 20 MG PO HS Dabigatran Etexilate Mesylate (Pradaxa) 150 Mg Capsule 150 MG PO BID Famotidine (Pepcid) 20 Mg Tablet 20 MG PO BID Lisinopril (Lisinopril) 2.5 Mg Tablet 2.5 MG PO DAILY Metformin (Metformin) 500 Mg Tablet 500 MG PO HS Ondansetron ODT (Ondansetron ODT) 8 Mg Tab.rapdis 8 MG PO QID Simvastatin (Simvastatin) 40 Mg Tablet 40 MG PO HS Scheduled PRN Albuterol Neb Soln (Albuterol Neb Soln) 2.5 Mg/3 Ml Vial.neb 2.5 MG IH Q4 PRN PRN For Shortness of Breath Albuterol/Ipratropium (Combivent Respimat Inhal [place]) 120 Spr/4 Gm Inhaler 1 PUFF IH QID PRN PRN For Shortness of Breath Beclomethasone Dipropionate (Qvar) 8.7 Gm Aer.w.adap 2 PUFF INH BID PRN PRN For Shortness of Breath Hydrocodone-Acetaminophen 5-325 mg (Hydrocodone-Acetaminophen 5-325 mg) 1 Each Tablet 1 EACH PO TID PRN PRN For Pain Hydrocodone-Acetaminophen 5-325 mg (Hydrocodone-Acetaminophen 5-325 mg) 1 Each Tablet 1 TABLET PO Q4H PRN PRN For Pain Ibuprofen (Ibuprofen) 400 Mg Tablet 400 MG PO QID PRN PRN For Pain Tramadol (Tramadol) 50 Mg Tablet 100 MG PO Q6H PRN PRN For Pain oxyCODONE-Acetaminophen 5-325 mg (oxyCODONE-Acetaminophen 5-325 mg) 1 Each Tablet 1-2 TAB PO Q6H PRN PRN For Pain General Time Seen by MD: 22:43 Chief Complaint Abdominal pain Hx Obtained From: Patient Arrived By: Walk-in Sudden in Onset?: Yes Onset Occurred: More than a week ago... (ten days ago) Symptom Duration: Since onset Recent Healthcare: No recent hospitalization, Recent doctor visit Past Medical History Patient History: FH: stomach ulcer FATHER FHx: lung cancer FATHER Past Medical History Notes: PCP: Dr. Black Past Medical History History of Afib, atrial flutter, and SVT Morbid obesity COPD on 2L home O2 at night Diabetes mellitus type II Hyperlipidemia Hypertension Pneumonia Sepsis Past Surgical History Sedation of a benign back tumor Bilateral breast reduction surgery Reports: (2), Cholecystectomy, Hysterectomy Reports: Back/neck surgery Smoking History Current Every Day Smoker, Light Tobacco Smoker Social History Long-time smoker. Alcohol Use: Denies alcohol use Drug Use: Denies drug use Other Social History: Frequent ED visitor, Local resident Ambulatory Status Independent Review of Systems Weight loss due to inability to consume food GI: Reports: Abdominal pain, Diarrhea, Nausea, Vomiting Complete sys rev & neg: except as marked. Physical Exam Vital Signs Vital Signs (First) Date Time Temp Pulse Resp B/P Pulse Ox O2 Delivery O2 Flow Rate FiO2 10/23/16 19:42 36.8 98 16 148/69 Room Air 10/24/16 00:46 87 Initial VS: Reviewed, Vital signs normal General/Constitutional: Awake, Alert Distress / Hydration: Positive: Dehydration mild Appearance / Presentation: Positive: Obese, Uncomfortable Respiratory / Chest: Atraumatic, Breath sounds NL, Breath sounds = bilat, No respiratory distress, No rales, No rhonchi, No wheezing Cardiovascular: Heart rate NL, Regular rhythm, Heart sounds NL, Peripheral circulation NL Abdomen: Atraumatic, Soft, Non-tender (Difficult to assess due to obesity ) Back: Atraumatic, Inspection NL, Full range of motion Head / Eyes: Atraumatic, Normocephalic ENT: Atraumatic, Airway patent Skin: Atraumatic, Color NL, No rash, Warm, Dry Neurologic: Oriented X3, Speech NL Psychiatric: Affect NL, Mood NL Interpretation & Diagnostics Lab Results Interpretation Result Diagram: 10/23/16211610/23/162116 Test 10/23/16 21:17 10/24/16 00:01 White Blood Count 11.9th/mm3 (3.8-10.1) Red Blood Count 5.06mil/mm3 (3.90-5.20) Hemoglobin 15.3g/dL (12.0-15.6) Hematocrit 47.5% (35.0-46.0) Mean Corpuscular Volume 93.9fL (81-100) Mean Corpuscular Hemoglobin 30.2pg (27.0-35.0) Mean Corpuscular Hemoglobin Concent 32.2% (32.0-37.0) Red Cell Distribution Width 15.1% (12.3-15.4) Platelet Count 254bil/L (150-400) Neutrophils (%) (Auto) 73.1% (40-74) Lymphocytes (%) (Auto) 18.2% (14-46) Monocytes (%) (Auto) 6.6% (4-12) Eosinophils (%) (Auto) 1.4% (0-5) Basophils (%) (Auto) 0.5% (0-3) Sodium Level 136mEq/L (134-144) Potassium Level 4.0mEq/L (3.5-5.2) Chloride Level 97mEq/L (97-108) Carbon Dioxide Level 24mmol/L (18-29) Blood Urea Nitrogen 7mg/dL (8-27) Creatinine 0.44mg/dL (0.57-1.00) Estimat Glomerular Filtration Rate 208mL/min (>59) Glucose Level 141mg/dL (60-99) Calcium Level 9.1mg/dL (8.5-10.1) Magnesium Level 1.7mg/dL (1.6-2.6) Total Bilirubin 0.4mg/dL (0.0-1.2) Aspartate Amino Transf (AST/SGOT) 21U/L (0-50) Alanine Aminotransferase (ALT/SGPT) 15U/L (0-32) Alkaline Phosphatase 85U/L (25-165) Total Protein 7.8g/dL (6.4-8.4) Albumin 3.2g/dL (3.4-5.0) Lipase 64U/L (13-60) Urine Color Yellow (YELLOW) Urine Appearance Hazy (CLEAR,HAZY) Urine pH 5.5 (5.0-8.0) Urine Specific [place] 1.025 (1.003-1.035) Urine Protein Tracemg/dL (NEG,TRACE) Urine Glucose (UA) Negativemg/dL (NEGATIVE) Urine Ketones Negativemg/dL (NEGATIVE) Urine Occult Blood Negative (NEGATIVE) Urine Nitrite Negative (NEGATIVE) Urine Bilirubin Negative (NEGATIVE) Urine Urobilinogen Normalmg/dL (NORMAL) Urine Leukocyte Esterase Negative (NEGATIVE) Urine RBC 0-2/hpf (0-2) Urine WBC 0-5/hpf (0-5) Urine Epithelial Cells Many/hpf (NONE-MOD) Urine Crystals None seen (NONE SEEN) Urine Bacteria Many/hpf (NONE-FEW) Urine Hyaline Casts None/lpf (NONE) Urine Granular Casts None seen (NONE SEEN) Urine Waxy Casts None seen (NONE SEEN) Urine Red Blood Cell Casts None seen (NONE SEEN) Urine White Blood Cell Casts None seen (NONE SEEN) Urine Mucus Present (None Seen) Urine Trichomonas None seen (NONE SEEN) Urine Yeast None (NONE SEEN) Urinalysis Comment None Urine Culture Reflexed Indicated Lab Results Interpretation: CBC mild leukocytosis CMP normal patient did not produce stool sample for PCR testing Lipase 64, not significantly elevated UA negative CT Abd / Pelvis Interpretation Impression: Mild focal pancreatitis. No loculated fluid collection or abscess. Please note incidental findings above. Please see final report for other non-emergent incidental findings. This report was transmitted to the emergency room at 10/24/16 - 1:02:17 AM PDT. Study type: Abdominal CT IV contrast Interpretation / Wet Read by: Interpret - Radiologist Re-Eval/Medical Decision Med Decision/Clinical Course This is a 61-year-old female presents complaining of abdominal discomfort, as well as nausea, vomiting, diarrhea, and reportedly 10 pound unintentional weight loss and symptoms began over the past 10 days. Has not had yani fever, no recent C. difficile risk factors, but she reports she saw her PCP who reportedly referred her to the emergency department given the severity of her symptoms. Patient appears fatigued, but nontoxic. Her abdomen is soft without clinical yani peritonitis. She is obese. Blood work revealed moderate leukocytosis, but otherwise unremarkable. And the patient did not have any episodes of diarrhea and reports it is mostly resolved- such that the stool studies could not be performed. CT imaging was obtained and raised the question of mild pancreatitis. Atypical for pancreatitis, her lipase is normal, and so whether or not this represents an actual pancreatitis is still uncertain. I have explained the diagnostic uncertainty. Meanwhile the patient received several liters of IV fluids pain and nausea medicine and feels much improved. She is able to drink fluids, take Jell-O in the department , and is comfortable with an attempted discharge home. I provided a prepack for some oxycodone and a prescription for some oxycodone. The patient has taken hydrocodone thisroutinelywillusetheoxycodoneinstead. Routineandreturnprecautionsarereviewed. The patient is discharged in improved condition Source of Hx: Old records Re-Evaluation/Progress #1: Time of Eval: 01:14 Re-Evaluation/Progress Note: Pt rechecked. Pt is feeling better. Re-Evaluation/Progress #2: Time of Eval: 01:31 Re-Evaluation/Progress Note: Pt rechecked. Informed pt of plan for treatment. Pt understands and agrees with plan for treatment. F/U instructions and RTER warnings given. All questions addressed. Differential Diagnosis: Positive: Acute abdominal pain, Pancreatitis, Negative: Abdominal aortic aneurysm, Acute coronary syndrome, Bladder outlet obstruct, Ectopic preg ruptured, Ectopic , Esophageal rupture, Gun shot wound abdomen, Peritonitis, Porphyria, Stab wound abdomen, Trauma, abdominal, Urinary obstruction, Urinary retention, Urinary tract infection Counseled Regarding: Diagnosis, Lab results, Need for follow-up, When/why to return to ED Discharge & Departure Primary Impression: Diarrhea Diarrhea type: unspecified type Qualified Code: R19.7 - Diarrhea, unspecified Additional Impressions: Pancreatitis Chronicity: acute Pancreatitis type: unspecified pancreatitis type Acute pancreatitis complication: unspecified Qualified Code: K85.90 - Acute pancreatitis without necrosis or infection, unspecified Dehydration Disposition: Home Discharge Condition All VS Reviewed: Yes Condition: Stable Additional Instructions: 1. Your blood tests were normal. 2. Your CT scan raised the possibility of mild pancreatitis, although this is not a definitive finding - and your pancreas blood tests were normal. Dangerous cause of the pancreatitis if it is present, was not identified. 3. Rest. 4. Continue ondansetron 8 mg-up to every 4 hours as needed for nausea. 5. Take oxycodone/APAP 05/325 one to 2 tabs up to every 6 hours if needed for pain. Note: This medication contains an narcotic and causes drowsiness. No driving for at least 4-6 hours after taking. 6. Symptoms are expected to be improved with time over the next several days. 7. I recommend a soft diet for the next several days, but then slowly advancing as tolerated. 8. Follow up with her primary care physician early next week for recheck. 9. If you have new, worsening, or uncontrolled symptoms-return to the emergency department. Referrals: Marly Black MD (PCP) Scribe Attestation Portions of this note were transcribed by Monty Lakhani. I, Dr. Perez personally performed the history, physical exam and medical decision-making; I reviewed and confirmed the accuracy of the information in the transcribed note. Signed by : Asya Fried, 10/23/16 and 2313. copies to: Marly Black MD, Matthew F MD October 23, 2016 22:45 Monty Lakhani October 23, 2016 22:58
[2016-10-23] MEDS ORDERED: 0.9% Sodium Chloride 1,000 ML IV ONE ×3 (22:55→23:00)
[2016-10-23] MEDS ORDERED: Ketorolac 15 mg/mL Inj IVPUSH ONE (23:00)
[2016-10-23] MEDS ORDERED: Ondansetron 2 mg/mL 2 mL Inj IVPUSH ONE (23:00)
[2016-10-24 00:19] LABS: COLOR,URINE YELLOW (YELLOW)
[2016-10-24 00:20] LABS: APPEARANCE,URINE HAZY (CLEAR,HAZY); OCCULT BLOOD,URINE NEGATIVE (NEGATIVE); PH,URINE 5.5 (5.0-8.0); UROBILINOGEN,URINE NORMAL (NORMAL)
[2016-10-24 00:46] VITALS: BP 108/64; PULSE 85; RESP 18; O2SAT 87
[2016-10-24] MEDS ORDERED: _oxyCODONE/APAP 5-325 mg Tablet PO PRN (01:30)
[2016-10-24] MEDS ORDERED: OXYC1TAB24 PO (01:36)
--- NOTE | 2016-10-24 08:38 | DRSVH ---
PROCEDURE: CT ABDOMEN AND PELVIS WITH CONTRAST ([id number]) INDICATIONS: Abd pain TECHNIQUE: After the administration of intravenous contrast, 5 mm thick sections acquired from the diaphragm to the symphysis. 5 mm coronal and sagittal reformats were acquired. For radiation dose reduction, the following was used: automated exposure control, adjustment of mA and/or kV according to patient bennett schreiber. COMPARISON: [facility], CT, CT KUB, 03/26/2015, 10:18. FINDINGS: Image quality: Excellent. ABDOMEN: Lung bases: Lung bases are clear. Heart size is normal. Solid organs: Liver is mildly enlarged with steatosis. The spleen is normal in size and enhancement. Gallbladder has been. Biliary system is non dilated. Pancreas enhances normally. There is appeara nce of edema within the pancreatic uncinate process head and proximal body. Mild peripancreatic fat s tranding is present. No peripancreatic fluid collection or abscess. No adrenal nodules. Kidneys demo nstrate normal size and enhancement, without hydronephrosis. Nonobstructing 7 mm inferior left renal pole calculus, unchanged. Peritoneum and bowel: Bowel loops demonstrate normal wall thickness and caliber. No free fluid or a ir. Colonic diverticula are present. Nodes and vessels: No retroperitoneal or mesenteric adenopathy by size criteria. Aorta and inferior vena cava are normal in size. Miscellaneous: No ventral hernias. PELVIS: Genitourinary: Bladder wall thickness is normal. Miscellaneous: No inguinal hernias or adenopathy. Bones: No suspicious bony lesions. No vertebral body compression fractures. IMPRESSION: 1. Pancreatic edema as described above most consistent with pancreatitis. No pseudocyst or pancreatic abscess is identified. 2. Hepatomegaly with steatosis. 3. Nonobstructive left renal calculi. Dictated by: Beti Chapa M.D. on 10/24/2016 at 8:34 Approved by: Beti Chapa M.D. on 10/24/2016 at 8:37
== END 2016-10-24 02:30 | disposition home or self-care (01) ==
LOC: SED 19:13
DX: K85.90 Acute pancreatitis without necrosis or infection, unspecified (principal); R19.7 Diarrhea, unspecified; E86.0 Dehydration; I10 Essential (primary) hypertension; E11.9 Type 2 diabetes mellitus without complications; E78.5 Hyperlipidemia, unspecified; F17.200 Nicotine dependence, unspecified, uncomplicated; Z79.84 Long term (current) use of oral hypoglycemic drugs; Z79.899 Other long term (current) drug therapy
CPT/HCPCS: 36415; 74177; 80053; 81000; 83690; 83735; 85025; 87086; 87088; 96361; 96374; 96375; 99285; J1885; J2405; J7030; Q9967

== ENCOUNTER 2016-12-29 17:18 | Emergency (ER) | payer OTHER ==
[~2016-12-29] VITALS: Ht 162.6 cm; Wt 127.3 kg
[~2016-12-29 17:18] MED LIST changes: +OXYC1TAB24 PO
[2016-12-29 17:52] VITALS: BP 147/81; PULSE 79; RESP 20; O2SAT 93
--- NOTE | 2016-12-29 18:24 | ED.REPORT ---
HPI-Abd Pain F 40 and Over Date of Service Dec 29, 2016 ED Provider: Dr. Tipton Pt is a 61 y/o female w/ a hx of a-fib, COPD, NIDDM, HLD, HTN, presenting to the ED c/o chronic diffuse abdominal pain worse over the past 4 days ago. This pain is typical for her chronic abdominal pain and she was told that her pain may be related to her pancreas. She c/o associated mild constipation. She denies nausea, vomiting, diarrhea, dysuria, fever. Abdominal surgeries: cholecystectomy, hysterectomy, . Last abdominal CT scan performed interpreted as below. IMPRESSION: 1. Pancreatic edema as described above most consistent with pancreatitis. No pseudocyst or pancreatic abscess is identified. 2. Hepatomegaly with steatosis. 3. Nonobstructive left renal calculi. Nursing Notes Stated Complaint: STOMACH PAIN Chief Complaint: Female Abdominal Pain Nursing Notes Reviewed: Yes Allergies: Coded Allergies: No Known Allergies (Verified , 08/03/16) Scheduled ([Diltiazem Hcl]) 120 MG CAP.ER.24H 120 MG PO DAILY Baclofen (Baclofen) 10 Mg Tablet 10 MG PO TID Citalopram (Citalopram) 20 Mg Tablet 20 MG PO HS Dabigatran Etexilate Mesylate (Pradaxa) 150 Mg Capsule 150 MG PO BID Famotidine (Pepcid) 20 Mg Tablet 20 MG PO BID Lisinopril (Lisinopril) 2.5 Mg Tablet 2.5 MG PO DAILY Metformin (Metformin) 500 Mg Tablet 500 MG PO HS Ondansetron ODT (Ondansetron ODT) 8 Mg Tab.rapdis 8 MG PO QID Simvastatin (Simvastatin) 40 Mg Tablet 40 MG PO HS Scheduled PRN Albuterol Neb Soln (Albuterol Neb Soln) 2.5 Mg/3 Ml Vial.neb 2.5 MG IH Q4 PRN PRN For Shortness of Breath Albuterol/Ipratropium (Combivent Respimat Inhal [place]) 120 Spr/4 Gm Inhaler 1 PUFF IH QID PRN PRN For Shortness of Breath Beclomethasone Dipropionate (Qvar) 8.7 Gm Aer.w.adap 2 PUFF INH BID PRN PRN For Shortness of Breath Hydrocodone-Acetaminophen 5-325 mg (Hydrocodone-Acetaminophen 5-325 mg) 1 Each Tablet 1 EACH PO TID PRN PRN For Pain Hydrocodone-Acetaminophen 5-325 mg (Hydrocodone-Acetaminophen 5-325 mg) 1 Each Tablet 1 TABLET PO Q4H PRN PRN For Pain Ibuprofen (Ibuprofen) 400 Mg Tablet 400 MG PO QID PRN PRN For Pain Tramadol (Tramadol) 50 Mg Tablet 100 MG PO Q6H PRN PRN For Pain oxyCODONE-Acetaminophen 5-325 mg (oxyCODONE-Acetaminophen 5-325 mg) 1 Each Tablet 1-2 TAB PO Q6H PRN PRN For Pain General Time Seen by MD: 18:23 Chief Complaint Abdominal pain Hx Obtained From: Patient Arrived By: Walk-in Sudden in Onset?: No Onset Occurred: 4 days ago Symptom Duration: Since onset Location: : Diffuse Quality: Painful Severity: Current: Moderate Severity: Maximum: Moderate Recent Healthcare: Recent testing, Prior workup Similar Sx Previous: Yes Past Medical History Past Medical History Notes: PCP: Dr. Black Past Medical History Chronic abdominal pain History of Afib, atrial flutter, and SVT Morbid obesity COPD on 2L home O2 at night Diabetes mellitus type II Hyperlipidemia Hypertension Hx pneumonia Hx sepsis Hx pancreatitis GERD Past Surgical History Sedation of a benign back tumor Bilateral breast reduction surgery Reports: , Cholecystectomy, Hysterectomy Reports: Back/neck surgery Smoking History Current Every Day Smoker Social History Long-time smoker. Alcohol Use: Denies alcohol use Drug Use: Denies drug use Other Social History: Frequent ED visitor, Local resident Ambulatory Status Independent Review of Systems Constitutional: Denies: Chills, Fever GI: Reports: Abdominal pain, Constipation, Denies: Diarrhea, Nausea, Vomiting Female: Denies: Dysuria Complete sys rev & neg: except as marked. Physical Exam Vital Signs Vital Signs (First) Date Time Temp Pulse Resp B/P Pulse Ox O2 Delivery O2 Flow Rate FiO2 12/29/16 17:52 36.9 79 20 147/81 93 Room Air Initial VS: Reviewed Head / Eyes: Atraumatic, Normocephalic, PERRL ENT: Mucous membranes moist, Conjunctiva normal, No scleral icterus Neck: Supple, Full range of motion Extremities: Vascular intact, Neuro intact, No swelling Skin: Warm, Dry, No cyanosis Neurologic: Alert, Oriented, Nonfocal Psychiatric: Mood/affect normal, Behavior normal, Normal thought content General/Constitutional: Awake, Alert, Cooperative, Not toxic appearing Distress / Hydration: Positive: Distress mild Appearance / Presentation: Positive: Obese, morbidly, Uncomfortable Respiratory / Chest: Breath sounds NL, Breath sounds = bilat, No respiratory distress, No rales, No rhonchi, No wheezing, No stridor Cardiovascular: Heart rate NL, Regular rhythm, Heart sounds NL, No murmurs Abdomen: Atraumatic, Soft, No guarding, No rebound, No distention Tenderness/Guarding/Rebound: Positive: Tender diffuse (mild) Back: Full range of motion, Painless range of motion, No CVA tenderness Interpretation & Diagnostics Lab Results Interpretation Result Diagram: 12/29/16 1824 12/29/16 1824 Test 12/29/16 18:24 12/29/16 20:35 White Blood Count 11.3th/mm3 (3.8-10.1) Red Blood Count 4.77mil/mm3 (3.90-5.20) Hemoglobin 14.3g/dL (12.0-15.6) Hematocrit 46.7% (35.0-46.0) Mean Corpuscular Volume 97.9fL (81-100) Mean Corpuscular Hemoglobin 30.0pg (27.0-35.0) Mean Corpuscular Hemoglobin Concent 30.6% (32.0-37.0) Red Cell Distribution Width 15.1% (12.3-15.4) Platelet Count 261bil/L (150-400) Neutrophils (%) (Auto) 66.2% (40-74) Lymphocytes (%) (Auto) 24.8% (14-46) Monocytes (%) (Auto) 6.4% (4-12) Eosinophils (%) (Auto) 2.0% (0-5) Basophils (%) (Auto) 0.4% (0-3) Sodium Level 138mEq/L (134-144) Potassium Level 4.0mEq/L (3.5-5.2) Chloride Level 99mEq/L (97-108) Carbon Dioxide Level 25mmol/L (18-29) Blood Urea Nitrogen 8mg/dL (8-27) Creatinine 0.41mg/dL (0.57-1.00) Estimat Glomerular Filtration Rate 226mL/min (>59) Glucose Level 132mg/dL (60-99) Calcium Level 8.5mg/dL (8.5-10.1) Magnesium Level 1.7mg/dL (1.6-2.6) Total Bilirubin 0.4mg/dL (0.0-1.2) Aspartate Amino Transf (AST/SGOT) 19U/L (0-50) Alanine Aminotransferase (ALT/SGPT) 15U/L (0-32) Alkaline Phosphatase 92U/L (25-165) Total Protein 7.6g/dL (6.4-8.4) Albumin 3.4g/dL (3.4-5.0) Lipase 17U/L (13-60) Urine Color Yellow (YELLOW) Urine Appearance Clear (CLEAR,HAZY) Urine pH 6.0 (5.0-8.0) Urine Specific [place] 1.025 (1.003-1.035) Urine Protein Negativemg/dL (NEG,TRACE) Urine Glucose (UA) Negativemg/dL (NEGATIVE) Urine Ketones Negativemg/dL (NEGATIVE) Urine Occult Blood Negative (NEGATIVE) Urine Nitrite Negative (NEGATIVE) Urine Bilirubin Negative (NEGATIVE) Urine Urobilinogen 1.0mg/dL (NORMAL) Urine Leukocyte Esterase Negative (NEGATIVE) Urine RBC 0-2/hpf (0-2) Urine WBC 0-5/hpf (0-5) Urine Epithelial Cells Moderate/hpf (NONE-MOD) Urine Crystals None seen (NONE SEEN) Urine Bacteria Few/hpf (NONE-FEW) Urine Hyaline Casts None/lpf (NONE) Urine Granular Casts None seen (NONE SEEN) Urine Waxy Casts None seen (NONE SEEN) Urine Red Blood Cell Casts None seen (NONE SEEN) Urine White Blood Cell Casts None seen (NONE SEEN) Urine Mucus None seen (None Seen) Urine Trichomonas None seen (NONE SEEN) Urine Yeast None (NONE SEEN) Urinalysis Comment None Urine Culture Reflexed Not indicated X-Ray Abdominal Interpretation IMPRESSION: 1. Minimal subsegmental atelectasis is seen at the lung bases. Vascular clips indicate previous cholecystectomy. 3 small calcifications in the left abdomen are consistent with nonobstructing renal calculi seen on the previous CT scan. 2. No other suggestion of abnormality other than degenerative changes in the spine are seen. Previous CT suggesting pancreatitis. This not be ruled in or out on plain films with an accuracy. Previous CT scan indicated diffuse fatty change in the liver. This cannot be evaluated with plain film. Dictated by: Abhinav Carmona M.D. on 12/29/2016 at 19:39 Approved by: Abhinav Carmona M.D. on 12/29/2016 at 19:44 Study: 4 view Interpretation / Wet Read by: Interpret - Radiologist Re-Eval/Medical Decision Med Decision/Clinical Course 61-year-old female on chronic narcotics chronic abdominal pain presenting with her typical chronic abdominal pain. She reports diffuse abdominal tenderness. She also reports constipation earlier today. Her exam was quite reassuring. She has mild diffuse abdominal tenderness. X-ray no evidence of obstruction. Labs are reassuring. Urine is negative for infection. Patient felt much better after pain medications. She declined a CT scan. She requested discharge home. She requested a refill of her chronic narcotics which I declined which she did not appreciate. I informed her that her chronic narcotics are likely contributing to her constipation and that these should be limited. Recommended MiraLAX. She was discharged home with plans to follow-up with primary doctor tomorrow for reevaluation. She is advised to return sooner she has been no worsening abdominal pain, fevers, nausea vomiting, any other new or worsening symptoms. Source of Hx: Old records Re-Evaluation/Progress : Time of Eval: 21:17 Re-Evaluation/Progress Note: Pt rechecked. Feeling better. Declining CT. Informed pt of plan for discharge. Pt understands and agrees with plan for discharge. F/U instructions and RTER warnings given. All questions addressed. Counseled Regarding: Diagnosis, Lab results, Need for follow-up, When/why to return to ED Discharge & Departure Primary Impression: Constipation Constipation type: unspecified constipation type Qualified Code: K59.00 - Constipation, unspecified Additional Impression: Diffuse abdominal pain Disposition: Home Discharge Condition All VS Reviewed: Yes Condition: Stable Patient Instructions: Acute Abdominal Pain (ED), Constipation (ED) Additional Instructions: Thank you for seeking care at the emergency room. It is difficult for us to make definitive diagnoses in the ED but we believe that you are experiencing abdominal pain which may be related to constipation. Our primary goal today in the Emergency Department was to evaluate you for any life-threatening conditions. Your evaluation was reassuring. Labs and abdominal x-ray today were reassuring. You declined a CT scan and your symptoms improved. I recommend you use stool softeners daily. Decrease your narcotics if you are able as this will worsen your constipation. You should follow-up with your primary doctor in the next week. You should return to the Emergency Department immediately if you develop worsening abdominal pain, fevers, vomiting, or any other concerning signs or symptoms. Thank you for letting us partake in your care today. Referrals: Marly Black MD (PCP) Scribe Attestation Portions of this note were transcribed by Bernardo Zaragoza. I, Dr. Tipton personally performed the history, physical exam and medical decision-making; I reviewed and confirmed the accuracy of the information in the transcribed note. Signed by Asya Brooks, 12/29/16 - 0 copies to: Marly Black MD, Ben M MD Dec 29, 2016 18:24 BERNARDO ZARAGOZA Dec 29, 2016 18:53
[2016-12-29 18:44] LABS: BASOPHILS % (AUTO) 0.4 % (0-3); MONOCYTES % (AUTO) 6.4 % (4-12); Mean Corpuscular Volume 97.9 fL (81-100); NEUTROPHILS % (AUTO) 66.2 % (40-74); Platelet Count 261 bil/L (150-400)
[2016-12-29] MEDS ORDERED: Ondansetron 2 mg/mL 2 mL Inj IVPUSH PRN (18:55)
[2016-12-29] MEDS ORDERED: 0.9% Sodium Chloride 1,000 ML IV ONE (18:55)
[2016-12-29 18:58] LABS: Magnesium 1.7 mg/dL (1.6-2.6)
--- NOTE | 2016-12-29 19:46 | DRSVH ---
PROCEDURE: X-RAY ACUTE ABDOMINAL SERIES ([id number]) INDICATIONS: abdomen pain TECHNIQUE: One view chest and two views of the abdomen were acquired. COMPARISON: [facility], CT, CT ABD PELVIS W CON, 10/24/2016, 0:37. FINDINGS: Surgical changes and devices: Vascular clips indicate previous cholecystectomy. Chest: Lungs are clear. Heart size is normal. No pleural effusions. No pneumoperitoneum. Abdomen: Bowel gas pattern is normal. The calcifications linearly arranged in the region of the left renal shadow are seen to be unchanged in position compared to the CT scan showing nonobstructing pavan al calculi.. Visualized solid organ contours appear normal. Bones: No suspicious bony lesions. IMPRESSION: 1. Minimal subsegmental atelectasis is seen at the lung bases. Vascular clips indicate previous abhijeet cystectomy. 3 small calcifications in the left abdomen are consistent with nonobstructing renal calcu li seen on the previous CT scan. 2. No other suggestion of abnormality other than degenerative changes in the spine are seen. Previous CT suggesting pancreatitis. This not be ruled in or out on plain films with an accuracy. Previous CT scan indicated diffuse fatty change in the liver. This cannot be evaluated with plain film. Dictated by: Abhinav Carmona M.D. on 12/29/2016 at 19:39 Approved by: Abhinav Carmona M.D. on 12/29/2016 at 19:44
[2016-12-29 20:57] LABS: APPEARANCE,URINE CLEAR (CLEAR,HAZY); COLOR,URINE YELLOW (YELLOW); OCCULT BLOOD,URINE NEGATIVE (NEGATIVE)
[2016-12-29 21:31] VITALS: BP 137/82; PULSE 93; O2SAT 90
== END 2016-12-29 21:31 | disposition home or self-care (01) ==
LOC: SED 17:18
DX: K59.00 Constipation, unspecified (principal); R10.84 Generalized abdominal pain; I11.9 Hypertensive heart disease without heart failure; I48.91 Unspecified atrial fibrillation; E11.59 Type 2 diabetes mellitus with other circulatory complications; E78.5 Hyperlipidemia, unspecified; J44.9 Chronic obstructive pulmonary disease, unspecified; K21.9 Gastro-esophageal reflux disease without esophagitis; F17.200 Nicotine dependence, unspecified, uncomplicated; Z90.49 Acquired absence of other specified parts of digestive tract; Z87.01 Personal history of pneumonia (recurrent); Z79.84 Long term (current) use of oral hypoglycemic drugs
CPT/HCPCS: 36415; 74022; 80053; 81000; 83690; 83735; 85025; 96361; 96374; 99285; J2270; J7030